=== PATIENT | female | born 1935 | race Caucasian/White ===

== ENCOUNTER → 2017-07-03 | Outpatient (CLI) | payer MEDICARE, MEDICAID, OTHER ==
[~2017-07-03] VITALS: Ht 157.5 cm; Wt 56.2 kg
[2017-07-03 10:37] VITALS: BP 121/81
[2017-07-03 10:58] VITALS: BP 124/74
--- NOTE | 2017-07-03 11:19 | Diagnostic Imaging Report ---
EXAMINATION: Dedicated thyroid ultrasound performed with ultrasound guidance provided for FNA performed by Dr. Douglas. Indication: Thyroid nodule FINDINGS: Ultrasound images demonstrate a left thyroid nodule. IMPRESSION: Ultrasound guidance provided for left thyroid nodule FNA. Dictated by: Dictated on workstation # [id number]
== END ==
LOC: RAD 10:03
PROVIDERS: ATTEND Nurse Practitioner
DX: E04.1 Nontoxic single thyroid nodule (principal)
CPT/HCPCS: 76942